=== PATIENT | male | born 1950 | race Caucasian/White ===

== ENCOUNTER 2020-02-02 13:07 | Emergency (ER) | payer OTHER ==
[~2020-02-02] VITALS: Ht 162.6 cm; Wt 80.7 kg
--- NOTE | 2020-02-02 13:07 | NUR ---
Patient BIBA ALS accompanied by [facility], transferred to bed 12. RN evaluating the patient at bedside.
[2020-02-02 13:13] VITALS: BP 148/78
--- NOTE | 2020-02-02 13:20 | NUR ---
PT BIBA FROM HOME FOR SYNCOPE EPISODE FOR 5S. PER EMS, PT WAS HAVING LUNCH WITH FAMILY AND PASSED OUT ON THE CHAIR. NO HEAD TRAUMA. PT DENIES ANY PAIN, SOB, COUGH, FEVER, DIZZINESS, N/V/D. BS 171 ON SCENE. PMH: DM, HTN
[2020-02-02] MEDS ORDERED: NACL 0.9% 500 ML IV ONE (13:30)
[2020-02-02 13:53] LABS: BASOPHILS % (AUTO) 0.3 % (0.0-2.0); EOSINOPHILS % (AUTO) 0.2 % (0.0-4.0); HEMOGLOBIN 15.1 g/dL (12.0-18.0); LYMPHOCYTES % (AUTO) 13.6 % (20.5-51.1); MEAN CORPUSCULAR HEMOGLOBIN 29 pg (27-31); MEAN CORPUSCULAR HGB CONC 34 g/dL (33-37); MEAN CORPUSCULAR VOLUME 86.6 fL (80-94); MONOCYTES # (AUTO) 0.8 K/uL (0.8-1.0); MONOCYTES % (AUTO) 10.1 % (1.7-9.3); NEUTROPHILS # (AUTO) 5.7 K/uL (1.8-7.7); NEUTROPHILS % (AUTO) 75.8 % (42.2-75.2); PLATELET COUNT (AUTO) 207 K/uL (140-450); RED CELL DISTRIBUTION WIDTH 13.5 % (11.6-13.7); WHITE BLOOD COUNT (AUTO) 7.6 K/uL (4.8-10.8)
[2020-02-02 14:06] LABS: ALBUMIN 3.6 g/dL (3.4-5.0); CARBON DIOXIDE 29.2 mmol/L (21-32); POTASSIUM 4.2 mmol/L (3.5-5.1); TOTAL BILIRUBIN 0.5 mg/dL (0.0-1.0)
[2020-02-02 14:08] LABS: PROTHROMBIN TIME 10.3 secs (10.8-13.4)
--- NOTE | 2020-02-02 14:08 | NUR ---
Xray at bedside
--- NOTE | 2020-02-02 15:03 | NUR ---
CANCELED UA PER DR. HAN'S ORDER.
[2020-02-02 15:05] VITALS: BP 135/75
--- NOTE | 2020-02-02 15:05 | NUR ---
Patient discharged with v/s stable. Written and verbal after care instructions given and explained. Patient verbalized understanding. Ambulatory with steady gait. All questions addressed prior to discharge. Advised to follow up with PMD.
--- NOTE | 2020-02-02 17:14 | NUR ---
CALLED PT AND HIS SON SUZANNE AT PHONE # [phone] TO INFORM PT THAT HE IS POSITIVE FOR COVID AND GIVE COVID RELATED EDUCATION.
== END 2020-02-02 15:05 | disposition home or self-care (01) ==
LOC: MED 13:07
DX: R55 Syncope and collapse (principal); R42 Dizziness and giddiness; E11.9 Type 2 diabetes mellitus without complications; I10 Essential (primary) hypertension
CPT/HCPCS: 36415; 71045; 80053; 83605; 83880; 84484; 85025; 85610; 85730; 87040; 87426; 93005; 96360; 99285; J7030